=== PATIENT | male | born 1985 | race African-American/Black ===

== ENCOUNTER 2024-12-31 09:54 | Emergency (ER) | payer OTHER ==
[~2024-12-31] VITALS: Ht 172.7 cm; Wt 74.2 kg
[2024-12-31] MEDS: KETOROLAC 30 MG/ML 1 ML VIAL IM ONE (12:15)
[2024-12-31] MEDS: predniSONE 20 MG TAB PO ONE (12:15)
[2024-12-31 15:27] VITALS: BP 123/72; TEMP 98; O2SAT 99
[2024-12-31] MEDS ORDERED: MEDR4PAK PO (15:39)
[2024-12-31] MEDS ORDERED: METH-1165 PO (15:39)
== END 2024-12-31 15:45 | disposition home or self-care (01) ==
LOC: M ED 09:54
DX: M54.50 Low back pain, unspecified (principal); Z79.899 Other long term (current) drug therapy
CPT/HCPCS: 96372; 99284; J1885; J7512

== ENCOUNTER 2025-01-06 06:21 | Emergency (ER) | payer OTHER ==
[~2025-01-06] VITALS: Ht 172.7 cm; Wt 71.4 kg
[~2025-01-06 06:21] MED LIST: MEDR4PAK PO; METH-1165 PO
[2025-01-06 08:33] LABS: BASO # 0.1 10^3/uL (0.0-0.2); BASO % 0.5 % (0.0-1.0); EOS # 0.1 10^3/uL (0.0-0.5); EOS % 0.9 % (0.0-3.0); LYMPH # 6.6 10^3/uL (1.5-5.0); LYMPH % 47.9 % (24.0-44.0); MONO # 1.0 10^3/uL (0.0-0.8); MONO % 7.0 % (2.0-8.0); NEUTROPHILS # 6.0 10^3/uL (1.5-8.5); NEUTROPHILS % 43.3 % (36.0-66.0); PLATELET COUNT, AUTOMATED 342 10^3/uL (150-450)
[2025-01-06] MEDS: ACETAMINOPHEN *IV* 1,000 MG in IV 1 EA IV ONE (08:40)
[2025-01-06 09:06] VITALS: BP 131/81; TEMP 97.1; O2SAT 99
[2025-01-06] MEDS ORDERED: DICL20GE TP (10:52)
== END 2025-01-06 11:16 | disposition home or self-care (01) ==
LOC: M ED 06:21
DX: M25.511 Pain in right shoulder (principal); Z79.899 Other long term (current) drug therapy
CPT/HCPCS: 76882; 83605; 85025; 87040; 93971; 96365; 96366; 99284; J0131